=== PATIENT | female | born 2000 | race American Indian/Alaskan Native ===

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

== ENCOUNTER 2021-12-11 17:34 | Emergency (ER) | payer MEDICAID ==
[2021-12-11 17:46] VITALS: BP 99/60; PULSE 76
== END 2021-12-11 18:25 | disposition home or self-care (01) ==
LOC: DL.ED 17:34
DX: S63.501A Unspecified sprain of right wrist, initial encounter (principal); X50.1XXA Overexertion from prolonged static or awkward postures, initial encounter
CPT/HCPCS: 73110-RT; 99283

== ENCOUNTER 2022-12-24 17:07 | Emergency (ER) | payer BC, MEDICAID ==
[2022-12-24 17:30] VITALS: BP 123/79; PULSE 74
[2022-12-24] MEDS ORDERED: Take Home: Ondansetron 4 MG Tab.DIS, 5 Tab Pack PO ONE (17:34)
== END 2022-12-24 17:43 | disposition home or self-care (01) ==
LOC: DL.ED 17:07
DX: R11.2 Nausea with vomiting, unspecified (principal); R19.7 Diarrhea, unspecified; R10.9 Unspecified abdominal pain
CPT/HCPCS: 99282; 99283; Q0162

== ENCOUNTER 2024-01-09 23:01 | Emergency (ER) | payer SELFPAY ==
[2024-01-09] MEDS: Azithromycin 250 MG Tab PO ONE (23:45)
[2024-01-09] MEDS: Albuterol 6.7 GM Inhaler INH ONE (23:45)
[2024-01-09] MEDS: Dexamethasone 4 MG/ML SDV PO ONE (23:45)
[2024-01-09 23:58] VITALS: BP 124/78; PULSE 89
== END 2024-01-10 | disposition home or self-care (01) ==
LOC: DL.ED 23:01
DX: J40 Bronchitis, not specified as acute or chronic (principal); R07.89 Other chest pain
CPT/HCPCS: 71046; 99283; A9270; J8540

== ENCOUNTER 2024-07-15 17:11 | Emergency (ER) | payer BC ==
[2024-07-15] MEDS: Ibuprofen 800 MG Tab PO ONE (17:49)
[2024-07-15 18:05] VITALS: BP 116/78; PULSE 112
== END 2024-07-15 17:55 | disposition home or self-care (01) ==
LOC: DL.ED 17:11
DX: R50.9 Fever, unspecified (principal); Z87.09 Personal history of other diseases of the respiratory system
CPT/HCPCS: 99283; A9270

== ENCOUNTER 2024-08-29 00:58 | Emergency (ER) | payer BC ==
[2024-08-29] MEDS: Bacitracin Oint 1 GM U/D Packet TOP ONE (01:42)
[2024-08-29] MEDS: Ketorolac 30 MG/ML SDV IM ONE (01:42)
[2024-08-29] MEDS: cefTRIAXone 1 GM, Lidocaine 1% 2.1 ML IM ONE (01:44)
[2024-08-29 04:37] VITALS: BP 114/65; PULSE 85
== END 2024-08-29 02:20 | disposition home or self-care (01) ==
LOC: DL.ED 00:58
DX: L03.032 Cellulitis of left toe (principal); F17.290 Nicotine dependence, other tobacco product, uncomplicated
CPT/HCPCS: 81025; 87070; 87077; 87186; 87205; 96372; 99283; A9270-GY; J0696; J1885; J2003

== ENCOUNTER 2025-01-17 17:59 | Emergency (ER) | payer SELFPAY ==
[2025-01-17 18:20] VITALS: BP 122/76; PULSE 100
[2025-01-17] MEDS: Take Home: Amoxicillin/Clavulanate K 875-125 MG Tab, 6 Tab Pack PO ONE (18:29)
== END 2025-01-17 18:29 ==
LOC: DL.ED 17:59
DX: J06.9 Acute upper respiratory infection, unspecified (principal); B34.9 Viral infection, unspecified
CPT/HCPCS: 99283; A9270